=== PATIENT | female | born 1955 | race Caucasian/White ===

== ENCOUNTER 2017-03-14 15:29 | Emergency (ER) | payer BC, OTHER ==
[2017-03-14 15:37] VITALS: BP 182/82
[2017-03-14] MEDS ORDERED: Diphtheria,Pertussis(Acell),Tetanus Vaccine 0.5 ML SDV IM ONE (15:59)
[2017-03-14] MEDS ORDERED: Silver Sulfadiazine 1% Crm 50 GM Tube TOP ONE (15:59)
--- NOTE | 2017-03-14 16:07 | EDM.PDOC ---
ED HPI GENERAL MEDICAL PROBLEM - General Chief Complaint: Burn Stated Complaint: BURN ON RIGHT HAND Time Seen by Provider: 03/14/17 15:35 Source of Information: Reports: Patient History Limitations: Reports: No Limitations - History of Present Illness INITIAL COMMENTS - FREE TEXT/NARRATIVE: The patient was at work and she was removing some hot oil from a frier and it spilled on her right wrist. She has second degree burn to her right wrist and thumb. She is right handed. Her tetanus is not up to date. Onset: Today, Sudden Duration: Minutes: Location: Reports: Upper Extremity, Right (Wrist) Quality: Reports: Sharp Severity: Moderate Improves with: Reports: None Worsens with: Reports: None Associated Symptoms: Reports: No Other Symptoms Right Arm Pain Score (Numeric/FACES): 10 - Related Data Allergies Allergy/AdvReac Type Severity Reaction Status Date / Time No Known Allergies Allergy Verified 03/14/17 15:37 Home Meds: Home Meds Hydrocodone/Acetaminophen [Hydrocodon-Acetaminophen 5-325] 1 - 2 each PO Q6HR PRN #20 tablet 03/14/17 [Rx] Past Medical History - Past Health History Medical/Surgical History: Denies Medical/Surgical History Social & Family History - Tobacco Use Smoking Status *Q: Never Smoker ED ROS GENERAL - Review of Systems Review Of Systems: See Below Constitutional: Reports: No Symptoms HEENT: Reports: No Symptoms Respiratory: Reports: No Symptoms Cardiovascular: Reports: No Symptoms Endocrine: Reports: No Symptoms GI/Abdominal: Reports: No Symptoms : Reports: No Symptoms Musculoskeletal: Reports: Other (Right wrist burn) ED EXAM, BURN/SMOKE INHALATION - Physical Exam Exam: See Below Exam Limited By: No Limitations General Appearance: Alert, No Apparent Distress Mouth/Throat: No Symptoms Reported Head: No Symptoms Neck: No Symptoms Respiratory: No Respiratory Distress Extremity Exam: Other (Right wrist has a 2nd degree burn to the volar aspect that is less then 1%. There is a first degree burn on her thumb, hand and fingers.) Course - Vital Signs Last Recorded V/S: Last Vital Signs Temp 97.9 F 03/14/17 15:33 Pulse 106 H 03/14/17 15:33 Resp 20 03/14/17 15:33 BP 182/82 H 03/14/17 15:33 Pulse Ox 100 03/14/17 15:33 - Orders/Labs/Meds Orders: Active Orders 24 hr Category Date Time Status Vaccines to be Administered [RC] PER UNIT ROUTINE Care 03/14/17 16:00 Ordered Meds: Medications Discontinued Medications Generic Name Dose Route Start Last Admin Trade Name Abeba PRN Reason Stop Dose Admin Diphtheria/Tetanus/Acell Pertussis 0.5 ml 03/14/17 15:59 Adacel IM 03/14/17 16:00 .ONCE ONE Silver Sulfadiazine 1 gm 03/14/17 15:59 Silvadene 1% Cream 50 Gm TOP 03/14/17 16:00 ONETIME ONE - Re-Assessments/Exams Free Text/Narrative Re-Assessment/Exam: 03/14/17 16:07 My nurse cleaned her wound and I removed the extra skin. She then up dated her tetanus and put some silvadene on the wound. I will give her something for pain and follow up with Anamaria Colon. Departure - Departure Time of Disposition: 16:10 Disposition: Home, Self-Care 01 Condition: Good Clinical Impression: Burn of right forearm Qualifiers: Encounter type: initial encounter Burn degree: partial thickness (2nd degree) Qualified Code(s): T22.211A - Burn of second degree of right forearm, initial encounter - Discharge Information Prescriptions: Hydrocodone/Acetaminophen [Hydrocodon-Acetaminophen 5-325] 1 - 2 each PO Q6HR PRN #20 tablet PRN Reason: Pain Referrals: Anamaria Colon PA [Physician Offshoring Manager] - 1 Week Forms: ED Department Discharge Additional Instructions: Clean the burn 2 times per day with warm soapy water and apply the silvadene after. Take the hydrococone as needed for pain. Follow up with Anamaria Colon next week to check how this is healing. Please return if you are worse such as more pain, redness or swelling. - My Orders Last 24 Hours: My Active Orders 03/14/17 16:00 Vaccines to be Administered [RC] PER UNIT ROUTINE - Assessment/Plan Last 24 Hours: My Active Orders 03/14/17 16:00 Vaccines to be Administered [RC] PER UNIT ROUTINE
== END 2017-03-14 16:30 | disposition home or self-care (01) ==
LOC: JD.ED 15:29
DX: T22.211A Burn of second degree of right forearm, initial encounter (principal); T23.271A Burn of second degree of right wrist, initial encounter; T23.111A Burn of first degree of right thumb (nail), initial encounter; Z23 Encounter for immunization; X10.2XXA Contact with fats and cooking oils, initial encounter; Y99.0 Civilian activity done for income or pay
CPT/HCPCS: 16020; 90471; 90715; 99283; A9270

== ENCOUNTER 2022-04-05 16:19 | Emergency (ER) | payer MEDICARE, OTHER ==
[2022-04-05 16:29] VITALS: PULSE 99
[2022-04-05] MEDS ORDERED: Sodium Chloride 0.9% 10 ML Syringe FLUSH ONE (16:43)
[2022-04-05] MEDS ORDERED: Iopamidol 755 Mg/ML 100 ML Bottle IVPUSH ONE (16:43)
[2022-04-05] MEDS ORDERED: Sodium Chloride 0.9% 100 ML IV SCH (16:45)
[2022-04-05 17:20] LABS: ESTIMATED GFR 45 mL/min (>60)
[2022-04-05] MEDS ORDERED: INFUSION IV ONE (17:56)
[2022-04-05] MEDS ORDERED: ALTEPLASE IV ONE (17:56)
[2022-04-05 18:30] VITALS: BP 161/74
== END 2022-04-05 18:45 ==
LOC: JD.ED 16:19
DX: I63.511 Cerebral infarction due to unspecified occlusion or stenosis of right middle cerebral artery (principal)
CPT/HCPCS: 36415; 37195; 70450; 70496; 70498; 72125; 80053; 85025; 85610; 93005; 96360; 96361; 99291; J2997; J3490; Q9967